=== PATIENT | female | born 1985 | race Two or more races ===

== ENCOUNTER 2018-08-30 13:48 | Outpatient (CLI) | payer OTHER | END 2018-08-30 17:54 | disposition home or self-care (01) | LOC: OBS/DEL 13:48 | DX: O41.03X0 Oligohydramnios, third trimester, not applicable or unspecified (principal); Z34.83 Encounter for supervision of other normal pregnancy, third trimester ==

== ENCOUNTER 2018-09-20 12:07 | Inpatient (IN) | payer OTHER ==
[~2018-09-20] VITALS: Ht 165.1 cm; Wt 73.5 kg
[2018-09-20] MEDS ORDERED: PRENATAL TABLE1 EACH (13:42)
== END 2018-09-22 17:23 | DRG 807 ==
LOC: OB/GYN 12:07 → LDR 12:07 → SURH 12:28 → LDR 14:32 → OB/GYN 09-21 01:02
PROVIDERS: ADMIT Obstetrics & Gynecology
PROC: 10E0XZZ Delivery of Products of Conception, External Approach (ICD-10-PCS; principal; 2018-09-20)
PROC: 0KQM0ZZ Repair Perineum Muscle, Open Approach (ICD-10-PCS; 2018-09-20)
PROC: 4A1HXCZ Monitoring of Products of Conception, Cardiac Rate, External Approach (ICD-10-PCS; 2018-09-20)
DX: O70.1 Second degree perineal laceration during delivery (principal); Z37.0 Single live birth; Z3A.39 39 weeks gestation of pregnancy